=== PATIENT | female | born 1985 | race Caucasian/White ===

== ENCOUNTER → 2017-07-12 | Outpatient (CLI) | payer BC | LOC: MC.RAD 07:30 | DX: N63.13 Unspecified lump in the right breast, lower outer quadrant (principal); N63.20 Unspecified lump in the left breast, unspecified quadrant ==

== ENCOUNTER 2019-09-19 05:42 | Inpatient (IN) | payer BC ==
[~2019-09-19] VITALS: Ht 180.3 cm; Wt 135.9 kg
[2019-09-19] VITALS (20 sets, daily range): BP systolic 112–141; BP diastolic 69–94; PULSE 68–101; TEMP 97.7–99
--- NOTE | 2019-09-19 06:00 | NUR ---
0535- Patient and ambulatory to 210. Patient into restroom to void and change into gown. 0537- EFM and TOCO on and tracing. Patient denies contractions, LOF, or bleeding/spotting. Patient reports good movement. IV started by STEPHIE Cross. Labs drawn and sent. LR infusing. Consents signed.
[2019-09-19] MEDS ORDERED: PRENATAL MVI PO (06:22)
[2019-09-19 06:42] LABS: BASO % 0.3 % (0.0-2.0); EOS # 0.1 (0.0-0.7); EOS % 1.2 % (0-4.0); GRAN # 7.9 (1.4-6.5); GRAN % 69.5 % (42.2-75.2); HEMATOCRIT 39.6 % (37.0-47.0); HEMOGLOBIN 13.2 g/dl (12.5-16.0); LYMPH # 2.7 (1.2-3.4); MEAN CELL VOLUME 90 fl (80.0-100.0); MEAN CORPUSCULAR HEMOGLOBIN 30 pg (27.0-31.0); MEAN CORPUSCULAR HGB CONC 33 g/dl (33.0-37.0); MEAN PLATELET VOLUME 11.6 fl (7.4-10.4); MONO # 0.5 (0.1-0.6); MONO % 4.6 % (1.7-9.3); PLATELET COUNT 250 K/mm3 (130-400); RED BLOOD COUNT 4.42 M/mm3 (4.10-5.30); REDCELL DISTRIBUTION WIDTH-CV 13.5 % (11.5-14.5)
--- NOTE | 2019-09-19 10:30 | NUR ---
To nursery via bed to see baby in nursery. Denies any discomfort or needs at this time.
--- NOTE | 2019-09-19 11:15 | NUR ---
Back to room via bed with family.
--- NOTE | 2019-09-19 12:00 | NUR ---
Rests in bed, alert, visits with family.
--- NOTE | 2019-09-19 15:30 | NUR ---
Request pain medication. Percocet 5/325 mg two given per request and as ordered.
--- NOTE | 2019-09-19 17:20 | NUR ---
Ibuprofen 800 mg given as ordered.
[2019-09-20 01:58] VITALS: BP 126/74; PULSE 94; TEMP 97.8
[2019-09-20 06:15] VITALS: BP 114/71; PULSE 91; TEMP 98.2
[2019-09-20 08:07] VITALS: BP 110/57; PULSE 93; TEMP 97.6
[2019-09-20] MEDS ORDERED: MOTRIN 800800 MG/TAB PO (09:25)
[2019-09-20] MEDS ORDERED: PERCOCET 325 MG1 TA2 PO (09:25)
--- NOTE | 2019-09-20 14:45 | NUR ---
Discharge instructions given to pt. Videos watched and questions answered. Pumped breastmilk given back to patient. 1500:To personal vehicle.
== END 2019-09-20 15:00 | disposition home or self-care (01) | DRG 788 ==
LOC: OB 05:42
PROVIDERS: ADMIT Obstetrics & Gynecology
PROC: 10D00Z1 Extraction of Products of Conception, Low, Open Approach (ICD-10-PCS; principal; 2019-09-19)
DX: O32.1XX0 Maternal care for breech presentation, not applicable or unspecified (principal); Z3A.40 40 weeks gestation of pregnancy; Z37.0 Single live birth
CPT/HCPCS: J0690; J1885; J2370; J2405; J2590; J7120

== ENCOUNTER 2021-01-08 16:02 | Emergency (ER) | payer BC ==
[~2021-01-08] VITALS: Ht 182.9 cm; Wt 122.7 kg
[~2021-01-08 16:02] MED LIST: MOTRIN 800800 MG/TAB PO; PERCOCET 325 MG1 TA2 PO; PRENATAL MVI PO
[2021-01-08] MEDS ORDERED: NORCO 325 MG-51 TAB PO (19:03)
[2021-01-08] MEDS ORDERED: FLEXERIL 1010 MG/TAB PO (19:03)
[2021-01-08 19:50] VITALS: BP 124/73; PULSE 81; TEMP 97.9
== END 2021-01-08 19:51 | disposition home or self-care (01) ==
LOC: COL.ER 16:02
DX: S33.5XXA Sprain of ligaments of lumbar spine, initial encounter (principal); X50.1XXA Overexertion from prolonged static or awkward postures, initial encounter
CPT/HCPCS: J2270; J2360